=== PATIENT | female | born 1975 | race Caucasian/White ===

== ENCOUNTER → 2019-03-29 14:49 | Outpatient (CLI) | payer OTHER, SELFPAY | PROVIDERS: PCP Physician Assistant Medical | DX: C85.10 Unspecified B-cell lymphoma, unspecified site (principal); Z78.0 Asymptomatic menopausal state | CPT/HCPCS: 77080 ==

== ENCOUNTER → 2019-07-19 13:48 | Outpatient (CLI) | payer OTHER, SELFPAY ==
[2019-07-19 14:01] LABS: Add Manual Diff / Slide Review NO; Basophils Absolute Auto 100 /uL (0-100); Basophils Percent Auto 0.9 % (0-2); Eosinophils Absolute Auto 100 /uL (0-450); Eosinophils Percent Auto 1.3 % (2-4); Hemoglobin 13.2 g/dL (12.0-16.0); Lymphocytes Absolute Auto 2400 /uL (1100-4500); Lymphocytes Percent Auto 38.1 % (25-40); Mean Corpuscular HGB Conc 33.9 % (30-36); Mean Corpuscular Hemoglobin 32.1 PG (26-34); Mean Corpuscular Volume 94.7 fL (80-100); Monocytes Absolute Auto 600 /uL (0-900); Monocytes Percent Auto 9.9 % (3-14); Neutrophils Absolute Auto 3200 /uL (1500-7000); Neutrophils Percent Auto 49.8 % (50-75); Platelet Count 352 X10^3/uL (150-400); Red Blood Cell Count 4.12 X10^6/uL (4.0-5.2); Red Cell Distribution Width 12.2 % (11.6-14.8); White Blood Cell Count 6.4 X10^3/uL (4.5-11.0)
[2019-07-19 14:14] LABS: Alanine Aminotransferase 25 IU/L (<35); Albumin 4.7 g/dL (3.5-5.0); Albumin Globulin Ratio 1.6 (1.0-2.8); Alkaline Phosphatase 104 U/L (38-126); Aspartate Aminotransferase 26 IU/L (14-36); Bilirubin Total 0.4 mg/dL (0.2-1.3); Blood Urea Nitrogen 12 mg/dL (7-17); Calcium 9.7 mg/dL (8.4-10.2); Carbon Dioxide 30 mmol/L (22-32); Chloride 97 mmol/L (98-107); Estimated Glomerular Filt Rate > 60.0 mL/min (>60); Globulin 2.9 g/dL (1.7-4.1); Glucose 99 mg/dL (70-100); HEMOLYSIS < 15 (0-50); Lactate Dehydrogenase 349 U/L (313-618); Potassium 4.5 mmol/L (3.4-5.1); Sodium 137 mmol/L (137-145); Total Protein 7.6 g/dL (6.3-8.2)
== END ==
PROVIDERS: PCP Physician Assistant Medical
DX: C85.10 Unspecified B-cell lymphoma, unspecified site (principal)
CPT/HCPCS: 36415; 80053; 83615; 85025

== ENCOUNTER → 2019-07-26 15:43 | Outpatient (CLI) | payer OTHER, SELFPAY ==
--- NOTE | 2019-07-26 15:44 | DI.CT.S_ITS ---
PROCEDURE: CT LUMBAR SPINE W CON INDICATIONS: lower back pain TECHNIQUE: After the administration of intravenous Isovue contrast, 3 mm thick sections acquired through the levels of interest. Sagittal and coronal reformats were then constructed. For radiation dose reduction, the following was used: automated exposure control. COMPARISON: [place], [place], PET/CT SKULL BASE TO MID THIGH, 06/09/2014, 8:57. [facility], [place], CHEST/ABD/PEL WITH CONTRAST, 05/21/2015, 9:03. [facility], CT, CHEST/ABD/PEL WITH CONTRAST, 04/15/2016, 9:30. FINDINGS: Image quality: Excellent. Bones: Mild levoconvex scoliotic curvature is noted. No focal AP alignment abnormality is seen. No displaced fractures are seen. No suspicious lytic or blastic lesions are seen. The disc heights are well-preserved. Mild degenerative changes are seen. No significant central canal narrowing is seen. Soft tissues: No enhancing masses are seen. No retroperitoneal or paraspinous abnormal enhancement can be seen. No abscess formation. The kidneys enhance normally and symmetrically. No retroperitoneal lesions are seen. The aorta demonstrates normal caliber. No dilated loops of bowel are seen. IMPRESSION: No significant abnormality is detected. No abnormal enhancement is seen. Dictated by: Sadiq Madsen M.D. on 07/26/2019 at 16:52 Approved by: Sadiq Madsen M.D. on 07/26/2019 at 16:54
== END ==
PROVIDERS: PCP Physician Assistant Medical; Referring Provider Internal Medicine Hematology & Oncology; Visit Provider Internal Medicine Hematology & Oncology
DX: C85.10 Unspecified B-cell lymphoma, unspecified site (principal); M54.5 Low back pain
CPT/HCPCS: 72132; Q9967

== ENCOUNTER 2020-08-25 12:34 | Emergency (ER) | payer OTHER, SELFPAY ==
[2020-08-25 12:41] VITALS: BP 138/66; PULSE 104; RESP 18; TEMP 36.1; O2SAT 99
--- NOTE | 2020-08-25 12:46 | PC.NURSE ---
Left great toe infection w/ redness, swelling and increased discomfort. Pt has been soaking in epsom salts. Takes gabapentin and meloxicam daily and is not helping.
[2020-08-25] MEDS: TRAMADOL 50 MG TABLET PO (13:12)
[2020-08-25] MEDS: TRIMETH/SULFA 160/800 (DS) TABLET 1 TAB PO (13:13)
[2020-08-25 13:14] VITALS: PULSE 85; RESP 16; O2SAT 99
--- NOTE | 2020-08-25 13:17 | ED_ITS ---
HPI - Extremity Problem <KVNG Samano - Last Filed: 08/25/20 15:53> General Chief complaint: Extremity Problem,Nontraumatic Stated complaint: left toe infected Time Seen by Provider: 08/25/20 12:46 Source: patient Mode of arrival: Ambulatory Limitations: no limitations History of Present Illness HPI Narrative: The patient is a 45-year-old female nonsmoker with history of B- cell lymphoma in remission who presents with a chief complaint of an infection to her left toe. She notes that pulled the piece of skin off along the nail last week, substernal is been increasingly red and swollen. It was on the outside of the left great toe. She denies any fevers, vomiting, muscle aches or chills. She has been doing warm soaks several times per day. Related Data Home Medications Medication Instructions Recorded Confirmed PreserVision AREDS-2 180 mg PO BID #0 03/04/16 08/09/19 calcium carbonate 600 mg PO QDAY #0 03/04/16 08/09/19 magnesium oxide 400 mg PO QDAY #0 03/04/16 08/09/19 multivitamin [Multiple Vitamins] 1 tab PO QDAY #0 tab 04/18/16 08/09/19 Excedrin Migraine 1 tab PO PRN PRN #0 08/28/17 08/09/19 acetaminophen [Tylenol Extra 1,000 mg PO Q8HR 02/14/20 02/14/20 Strength] ibuprofen 800 mg PO TID 02/14/20 02/14/20 Previous Rx's Medication Instructions Recorded lorazepam [Ativan] 1 mg PO QPM PRN #30 tab 01/12/19 gabapentin 600 mg PO TID #90 tab 02/14/20 gabapentin 600 mg PO TID #90 tab 02/14/20 lorazepam 0.5 mg SUBLINGUAL BEDTIME PRN #30 08/23/20 tab sulfamethoxazole-trimethoprim 1 tab PO BID #14 tab 08/25/20 [Bactrim DS] tramadol 50 mg PO Q6H PRN #10 tab 08/25/20 Allergies Allergy/AdvReac Type Severity Reaction Status Date / Time Penicillins Allergy Mild RASH, Verified 08/25/20 12:45 NAUSEA Review of Systems <KVNG Samano - Last Filed: 08/25/20 15:53> Review of Systems Narrative: GENERAL: Denies chills, fatigue, malaise, fever, sweats. HEENT: Denies sinus pain, ear pain, sore throat, difficulty swallowing, dizziness. RESPIRATORY: Denies dyspnea, cough, wheezing, hemoptysis, sputum. CARDIOVASCULAR: Denies chest pain, palpitations, orthopnea, edema, GASTROINTESTINAL: Denies nausea, vomiting, abdominal pain, diarrhea, constipation, melena. : Denies dysuria, frequency, incontinence, hematuria, urinary retention. MUSCULOSKELETAL: denies weakness, joint pain, or bony pain SKIN: See HPI NEUROLOGIC: Denies weakness, headache, numbness, change in speech, confusion, seizures, incoordination. PSYCHIATRIC: No concerning psychosocial issues. 12 point review of systems is negative except for those stated above Patient History <[facility] - Last Filed: 08/25/20 15:53> Social History Smoking Status: Never smoker Smoking Status: Never smoker alcohol intake frequency: 0-2 drinks per day Substance Use Type: does not use Exam <[facility] - Last Filed: 08/25/20 15:53> Narrative Exam Narrative: GENERAL: This is a well-nourished, well-developed patient, in no acute distress HEAD: Atraumatic. Normocephalic. No temporal or scalp tenderness. EYES: Pupils equal round and reactive. Extraocular motions intact. No scleral icterus. No injection or drainage. ENT: Nose without bleeding, purulent drainage or septal hematoma. Wearing mask Airway patent. NECK: Trachea midline. No JVD or lymphadenopathy. Supple, nontender, no meningeal signs. CARDIOVASCULAR: Regular rate and rhythm RESPIRATORY: No cough. No increased respiratory effort. No accessory muscle use. EXTREMITIES: erythema noted to lateral aspect of left great toe, paronychia noted, no active drainage. Erythema extending 1 cm distal to great toenail on left side. Positive pedal pulses. Wiggling all toes. BACK: Nontender without deformity or crepitance. No flank tenderness. NEURO: AOx3. SKIN: See extremity exam Initial Vital Signs Initial Vital Signs: Vital Signs Temperature 96.9 F L 08/25/20 12:41 Pulse Rate 104 H 08/25/20 12:41 Respiratory Rate 18 08/25/20 12:41 Blood Pressure 138/66 08/25/20 12:41 Pulse Oximetry 99 08/25/20 12:41 <Tiik Campo DO - Last Filed: 08/25/20 17:06> Initial Vital Signs Initial Vital Signs: Vital Signs Temperature 96.9 F L 08/25/20 12:41 Pulse Rate 104 H 08/25/20 12:41 Respiratory Rate 18 08/25/20 12:41 Blood Pressure 138/66 08/25/20 12:41 Pulse Oximetry 99 08/25/20 12:41 Scores <KVNG Samano - Last Filed: 08/25/20 15:53> GCS [place] coma scale eye opening: Spontaneous [place] coma scale verbal response: Orientated [place] coma scale motor response: Obey commands [place] coma scale total score: 15 Course <KNVG Samano - Last Filed: 08/25/20 15:53> Orders Ordered: Discontinued Medications Tramadol HCl (Tramadol 50 Mg Tablet) 50 mg PO NOW ONE Stop: 08/25/20 13:10 Last Admin: 08/25/20 13:12 Dose: 50 mg Documented by: JENN Trimethoprim/Sulfamethoxazole (Trimeth/Sulfa 160/800 (Ds) Tablet) 1 tab PO NOW ONE Stop: 08/25/20 13:10 Last Admin: 08/25/20 13:13 Dose: 1 tab Documented by: JENN Vital Signs Vital signs: Vital Signs - 8 hr 08/25/20 12:41 08/25/20 13:14 08/25/20 13:44 Temperature 96.9 F L Pulse Rate 104 H 85 96 H Respiratory Rate 18 16 Blood Pressure 138/66 120/77 Pulse Oximetry 99 99 98 <Tiki Campo DO - Last Filed: 08/25/20 17:06> Orders Ordered: Discontinued Medications Tramadol HCl (Tramadol 50 Mg Tablet) 50 mg PO NOW ONE Stop: 08/25/20 13:10 Last Admin: 08/25/20 13:12 Dose: 50 mg Documented by: JENN Trimethoprim/Sulfamethoxazole (Trimeth/Sulfa 160/800 (Ds) Tablet) 1 tab PO NOW ONE Stop: 08/25/20 13:10 Last Admin: 08/25/20 13:13 Dose: 1 tab Documented by: JENN Vital Signs Vital signs: Vital Signs - 8 hr 08/25/20 12:41 08/25/20 13:14 08/25/20 13:44 Temperature 96.9 F L Pulse Rate 104 H 85 96 H Respiratory Rate 18 16 Blood Pressure 138/66 120/77 Pulse Oximetry 99 99 98 [facility] - Extremity (Nontraumatic) <JIM SamanoP-BC - Last Filed: 08/25/20 15:53> [facility] Narrative Medical decision making narrative: The patient is a 45-year-old female who presents with a chief complaint of possible infection to her left great toe. She no signs of systemic infection. 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 Encouraged continued warm soaks multiple signs per day. Encouraged primary care provider follow-up. Discussed at length monitoring for signs and symptoms of systemic infection including fever vomiting etcetera encouraged follow-up with primary care provider. Small prescription of tramadol provided for pain control to help the patient sleep. She can unfortunately not do Toradol as she is already on meloxicam. Patient has no questions or concerns upon discharge states understanding return precautions as well as follow-up care. Patient was given 1st dose of antibiotics in the emergency department, which she tolerated well. Discharge Plan Departure Patient Disposition: Home Clinical Impression: Paronychia Cellulitis Qualifiers: Site of cellulitis: extremity Site of cellulitis of extremity: toe Laterality: left Qualified Code(s): L03.032 - Cellulitis of left toe Clinical Impression: (Ruled Out): Gout Instructions: DI for Cellulitis -- Adult, DI for Paronychia, DI for Wound Infection Activity Restrictions/Additional Instructions: Thank you for trusting us with your care today I sent 2 prescriptions to [facility]. One is an antibiotic, the other is for pain Please take the antibiotic with probiotic or yogurt. This can help prevent antibiotic related side effects. Please follow-up with primary care provider in the next few days. As discussed please monitor for extending redness, fever, signs of systemic infection Please come back to the emergency department for any acute concerns You have been prescribed narcotic medications. While on these medications you cannot drive or operate heavy machinery. Additionally you cannot sign legal documents or perform any duties such as this. Many people get constipated on na rcotic medications so it would be advisable to discuss stool softeners with the pharmacist when you picker your prescription. Please continue warm soaks for several times per day several days Prescriptions: New sulfamethoxazole-trimethoprim [Bactrim DS] 800-160 mg tablet 1 tab PO BID Qty: 14 RF: 0 tramadol 50 mg tablet 50 mg PO Q6H PRN (Reason: pain) Qty: 10 RF: 0 No Action magnesium oxide 400 MG tablet 400 mg PO QDAY Qty: 0 RF: 0 calcium carbonate 600 MG tablet 600 mg PO QDAY Qty: 0 RF: 0 PreserVision AREDS-2 1 EACH capsule 180 mg PO BID Qty: 0 RF: 0 multivitamin [Multiple Vitamins] 1 EACH tablet 1 tab PO QDAY Qty: 0 RF: 0 Excedrin Migraine 1 EACH tablet 1 tab PO PRN PRN (Reason: Headache) Qty: 0 RF: 0 lorazepam [Ativan] 1 MG tablet 1 mg PO QPM PRN (Reason: sleep) Qty: 30 RF: 0 gabapentin 600 mg Tablet 600 mg PO TID Qty: 90 RF: 6 gabapentin 600 mg Tablet 600 mg PO TID Qty: 90 RF: 0 acetaminophen [Tylenol Extra Strength] 500 mg Tablet 1,000 mg PO Q8HR RF: 0 ibuprofen 800 mg Tablet 800 mg PO TID RF: 0 lorazepam 1 mg Tablet 0.5 mg SUBLINGUAL BEDTIME PRN (Reason: Sleep) Qty: 30 RF: 3 Referrals: Rossana Koroma PA-C [Primary Care Provider] - <Tiki Campo DO - Last Filed: 08/25/20 17:06> [facility] ED Attending Mary Ellen Attestation: I was immediately available in the department for consultation. Documentation has been reviewed. I agree with assessment and plan.
[2020-08-25 13:44] VITALS: BP 120/77; PULSE 96; O2SAT 98
== END 2020-08-25 13:45 | disposition home or self-care (01) ==
PROVIDERS: Emergency Provider Nurse Practitioner Family; PCP Physician Assistant Medical
DX: L03.032 Cellulitis of left toe (principal)
CPT/HCPCS: 99281; 99283

== ENCOUNTER → 2020-08-29 17:50 | Outpatient (CLI) | payer OTHER, SELFPAY ==
--- NOTE | 2020-08-29 | DI.MRI.S_ITS ---
PROCEDURE: MR ELBOW RT WO CON INDICATIONS: Pain in right elbow TECHNIQUE: Noncontrast coronal proton density fast spin echo and T2 fast spin echo with fat saturation, axial and sagittal T1 spin echo and T2 fast spin echo with fat saturation through the elbow. COMPARISON: [facility], [place], XR ELBOW 1 OR 2 VIEWS RIGHT, 08/20/2020, 15:25. FINDINGS: Image quality: Excellent. Lateral structures: There is moderate tendinosis and low grade intrasubstance tearing of the common extensor tendon at the origin with mild overlying soft tissue edema. The radial collateral ligament is intact. Medial structures: The ulnar collateral ligament appears intact. The overlying common flexor tendon appears normal. The ulnar nerve appears normal in size and signal within the cubital tunnel. Anterior structures: The biceps and brachialis tendons both appear intact as they insert onto the proximal radius and ulna, respectively. No bicipitoradial bursal fluid. The median and radial neurovascular bundles appear normal; no focal muscle atrophy to suggest nerve impingement. Posterior structures: Hypointense structure is seen posterior to the olecranon measuring 6 mm that most likely represents a small calcification related to calcific tendinopathy, as seen on the radiographs from 08/20/2020. Findings are superimposed on mild tendinosis without a discrete tendon tear identified. No olecranon bursal fluid. Bone and cartilage: No bone marrow contusions or fractures. No osteochondral injuries. IMPRESSION: 1. Low-grade partial intrasubstance tearing of the common extensor tendon at its origin superimposed on moderate tendinosis. 2. Calcific tendinopathy of the distal triceps tendon. Dictated by: Julian Richards M.D. on 08/30/2020 at 9:38 Approved by: Julian Richards M.D. on 08/30/2020 at 9:48
== END ==
PROVIDERS: PCP Physician Assistant Medical; Referring Provider Orthopaedic Surgery; Visit Provider Orthopaedic Surgery
DX: M25.521 Pain in right elbow (principal); S56.511A Strain of other extensor muscle, fascia and tendon at forearm level, right arm, initial encounter
CPT/HCPCS: 73221

== ENCOUNTER 2020-10-20 18:56 | Emergency (ER) | payer OTHER, SELFPAY ==
[2020-10-20] VITALS (11 sets, daily range): BP systolic 92–106; BP diastolic 57–72; PULSE 95–109; RESP 20; TEMP 36.3; O2SAT 96–100; BMI 29.2
[2020-10-20] MEDS: ONDANSETRON 4 MG/2 ML INJ IV ×2 (19:49→22:40)
[2020-10-20] MEDS: SODIUM CHLORIDE 0.9% 1,000 ML 1000 ML IV (19:50)
--- NOTE | 2020-10-20 19:54 | DI.CT.S_ITS ---
PROCEDURE: CT HEAD/BRAIN WO CON INDICATIONS: AMS TECHNIQUE: Noncontrast 4.5 mm thick angled axial sections acquired from the foramen magnum to the vertex, with coronal and sagittal reformats. For radiation dose reduction, the following was used: automated exposure control, adjustment of mA and/or kV according to patient size. COMPARISON: None. FINDINGS: Image quality: Excellent. CSF spaces: Basal cisterns are patent. No extra-axial fluid collections. Ventricles are normal in size and shape. Brain: No midline shift. No intracranial masses or hemorrhage. [place]-white matter interface is normal. Skull and face: Calvarium and visualized facial bones are intact, without suspicious lesions. Sinuses: Visualized sinuses and mastoids are clear. IMPRESSION: Source of altered mental status is not seen. Dictated by: Eladio Rome M.D. on 10/20/2020 at 20:33 Approved by: Eladio Rome M.D. on 10/20/2020 at 20:33
[2020-10-20 20:00] LABS: Acetaminophen < 10 ug/mL (10-30); Alanine Aminotransferase 22 IU/L (<35); Albumin 4.6 g/dL (3.5-5.0); Albumin Globulin Ratio 1.5 (1.0-2.8); Alkaline Phosphatase 112 U/L (38-126); Aspartate Aminotransferase 40 IU/L (14-36); BUN Creatinine Ratio 22.8 (6-22); Bilirubin Total 0.4 mg/dL (0.2-1.3); Blood Urea Nitrogen 13 mg/dL (7-17); Calcium 9.4 mg/dL (8.4-10.2); Carbon Dioxide 27 mmol/L (22-32); Chloride 102 mmol/L (98-107); Estimated Glomerular Filt Rate > 60.0 mL/min (>60); Ethanol (ETOH) 117 mg/dL; Globulin 3.1 g/dL (1.7-4.1); Glucose 96 mg/dL (70-100); Potassium 3.9 mmol/L (3.4-5.1); Salicylate < 1.0 mg/dL (<20); Sodium 138 mmol/L (137-145); Total Protein 7.7 g/dL (6.3-8.2)
[2020-10-20 20:03] LABS: HEMOLYSIS 103 (0-50)
[2020-10-20 20:15] LABS: Add Manual Diff / Slide Review NO; Basophils Absolute Auto 100 /uL (0-100); Basophils Percent Auto 0.9 % (0-2); Eosinophils Absolute Auto 100 /uL (0-450); Eosinophils Percent Auto 0.8 % (2-4); Hematocrit 36.4 % (36-46); Hemoglobin 12.6 g/dL (12.0-16.0); Lymphocytes Absolute Auto 2800 /uL (1100-4500); Lymphocytes Percent Auto 37.2 % (25-40); Mean Corpuscular HGB Conc 34.5 % (30-36); Mean Corpuscular Hemoglobin 32.4 PG (26-34); Monocytes Absolute Auto 600 /uL (0-900); Monocytes Percent Auto 8.1 % (3-14); Neutrophils Absolute Auto 4000 /uL (1500-7000); Platelet Count 369 X10^3/uL (150-400); Red Blood Cell Count 3.88 X10^6/uL (4.0-5.2); Red Cell Distribution Width 12.2 % (11.6-14.8); White Blood Cell Count 7.6 X10^3/uL (4.5-11.0)
[2020-10-20 20:21] LABS: Lipase 162 U/L (23-300)
[2020-10-20 20:48] LABS: Pregnancy Test Serum,Qual Negative (Negative)
[2020-10-20 21:36] LABS: UR Morphine/Opiate cutoff 300 Negative (Negative); Ur Creatinine Normal (Normal); Ur Specific Gravity Normal (Normal); Urine Amphetamines Negative (Negative); Urine Barbiturates Negative (Negative); Urine Benzodiazepines Negative (Negative); Urine Cocaine Negative (Negative); Urine MDMA Negative (Negative); Urine Methadone Negative (Negative); Urine Methamphetamines Negative (Negative); Urine Oxycodone Negative (Negative); Urine Phencyclidine Negative (Negative); Urine Tetrahydrocannabinol Negative (Negative); Urine Tricyclic Antidepressant Negative (Negative); Urine pH Normal (Normal)
[2020-10-20 21:37] LABS: Pregnancy Test Urine Negative (Negative)
[2020-10-20 21:46] LABS: Prolactin 30.8 ng/mL (3.0-18.6)
--- NOTE | 2020-10-20 22:08 | ED.AMS ---
HPI - Altered Mental Status General Chief Complaint: Toxicology Problem Stated Complaint: AMS Time Seen by Provider: 10/20/20 19:54 Source: patient, family and EMS Mode of arrival: EMS Limitations: no limitations History of Present Illness HPI narrative: Patient is a 45 year old female who was found unresponsive on her couch by her . EMS was promptly called he was unable to arouse her she has since become more arousable and very confused. She took her gabapentin this morning she has been on gabapentin for number of years the dose has not changed she had to [place] drinks at their house they were entertaining some gas and suddenly she was unarousable. She has no prior history of seizure there was no loss of urine it is unclear what happened it does not appear that there is trauma. She denies any drug use. She has no numbness tingling weakness fever or any other symptoms. MD complaint: confusion and decreased responsiveness Related Data Home Medications Medication Instructions Recorded Confirmed PreserVision AREDS-2 180 mg PO BID #0 03/04/16 09/17/20 calcium carbonate 600 mg PO QDAY #0 03/04/16 09/17/20 magnesium oxide 400 mg PO QDAY #0 03/04/16 09/17/20 multivitamin [Multiple Vitamins] 1 tab PO QDAY #0 tab 04/18/16 09/17/20 Excedrin Migraine 1 tab PO PRN PRN #0 08/28/17 09/17/20 acetaminophen [Tylenol Extra 1,000 mg PO Q8HR 02/14/20 09/17/20 Strength] ibuprofen 800 mg PO TID 02/14/20 09/17/20 meloxicam 15 mg PO DAILY 09/17/20 09/17/20 Previous Rx's Medication Instructions Recorded lorazepam [Ativan] 1 mg PO QPM PRN #30 tab 01/12/19 lorazepam 0.5 mg SUBLINGUAL BEDTIME PRN #30 08/23/20 tab sulfamethoxazole-trimethoprim 1 tab PO BID #14 tab 08/25/20 [Bactrim DS] tramadol 50 mg PO Q6H PRN #10 tab 08/25/20 gabapentin 600 mg PO TID #90 tab 08/30/20 ondansetron 4 mg PO Q8H PRN #10 tab 10/20/20 Allergies Allergy/AdvReac Type Severity Reaction Status Date / Time Penicillins Allergy Mild RASH, Verified 10/20/20 19:09 NAUSEA Review of Systems Review of Systems ROS Unobtainable: All systems reviewed & are unremarkable except as noted in HPI and below Constitutional Constitutional: Denies chills, Denies fever(s), Denies lethargy and Denies weakness Eyes Eyes: Denies blurry vision and Denies exophthalmos ENT Ears, Nose, Mouth, and Throat: Denies vertigo and Denies dizziness Cardiovascular Cardiovascular: Denies chest pain, Denies syncope, Denies irregular heart rhythm, Denies lightheadedness, Denies palpitations, Denies dyspnea, Denies dyspnea on exertion and Denies orthopnea Respiratory Respiratory: Denies cough, Denies dyspnea, Denies dyspnea on exertion and Denies wheezing Gastrointestinal Gastrointestinal: Denies abdominal pain, Denies change in bowel habits, Denies diarrhea, Denies nausea and Denies vomiting Musculoskeletal Musculoskeletal: Denies arthralgias, Reports back pain (Chronic) and Denies loss of height Integumentary/Breasts Skin/Breast: Denies pruritus, Denies erythema, Denies rash and Denies wounds Neurologic Neurologic: Reports as per HPI, Reports confusion, Denies vertigo, Denies dizziness, Denies syncope and Denies weakness Psychiatric Psychiatric: Reports confusion Endocrine Endocrine: Denies palpitations Allergic/Immunologic Allergic/Immunologic: Denies wheezing Patient History Social History Smoking Status: Never smoker Smoking Status: Never smoker alcohol intake frequency: 0-2 drinks per day Substance Use Type: does not use Exam Initial Vital Signs Initial Vital Signs: Vital Signs Pulse Rate 109 H 10/20/20 19:09 Respiratory Rate 20 10/20/20 19:09 Blood Pressure 106/72 10/20/20 19:09 Pulse Oximetry 100 10/20/20 19:09 GENERAL: Alert 45-year-old female appears mildly confused and weak and in no acute distress. HEENT: Head atraumatic,EOMI, pupils reactive, face symmetric, moist mucous membranes CARDIOVASCULAR: Regular rate and rhythm without murmurs, rubs or gallops. RESPIRATORY: Breath sounds equal bilaterally, no wheezes rales or rhonchi. ABDOMEN: Soft, nontender. Normoactive bowel sounds all 4 quadrants. No guarding or rebound. EXTREMITIES: Normal range of motion, no clubbing or edema. Neurovascularly intact NEUROLOGICAL: Alert and oriented x4.Normal gait and speech. Cranial nerves II through XII grossly intact. SKIN: Warm, dry, no laceration, no petechiae, no rashes or lesions. Scores NIH Stroke Scale Level of Conciousness: Alert, keenly responsive Ask month/age: Answers both questions correctly. Open/close eyes, close hand: Performs both tasks correctly Best gaze horizontal: Normal Visual coe: No visual loss Facial palsy: Normal symetrical movement Left arm drift: No drift for full 10 sec Right arm drift: No drift for full 10 sec Left leg drift: No drift for full 5 sec Right leg drift: No drift for full 5 sec Limb ataxia: Absent Sensory on face/arms/legs: Normal, no sensory loss Best language: No aphasia, normal Dysarthria: Normal Extinction or inattention: No abnormality Total NIH Stroke scale score: 0 Course Orders Ordered: ED Orders 10/20/20 21:03 Test Urine Stat Urine Drug Screen, Rapid Stat Discontinued Medications Sodium Chloride (Normal Saline 0.9%) 1,000 mls @ 1,000 mls/hr IV BOLUS ONE Stop: 10/20/20 20:38 Last Infusion: 10/20/20 21:17 Dose: 0 mls/hr Documented by: Admin: 10/20/20 19:50 Dose: 1,000 mls/hr Documented by: ELIZABETH Ketorolac Tromethamine (Ketorolac 30 Mg/Ml Vial) 15 mg IV NOW ONE Stop: 10/20/20 22:30 Last Admin: 10/20/20 22:40 Dose: 15 mg Documented by: ELIZABETH Ondansetron HCl (Ondansetron 4 Mg/2 Ml Inj) 4 mg IV NOW ONE Stop: 10/20/20 19:42 Last Admin: 10/20/20 19:49 Dose: 4 mg Documented by: ELIZABETH Ondansetron HCl (Ondansetron 4 Mg/2 Ml Inj) 4 mg IV NOW ONE Stop: 10/20/20 22:30 Last Admin: 10/20/20 22:40 Dose: 4 mg Documented by: ELIZABETH Vital Signs Vital signs: Vital Signs - 8 hr 10/20/20 21:30 10/20/20 22:30 10/20/20 23:00 Pulse Rate 95 H 98 H 96 H Blood Pressure 98/57 L 92/57 L Pulse Oximetry 100 99 96 10/20/20 23:07 Pulse Rate 95 H Blood Pressure 99/64 Pulse Oximetry 100 MDM - Altered Mental Status Lab Data Attestation: I reviewed the patient's lab results. Result diagrams: 10/20/20 19:15 10/20/20 19:15 Labs: Lab Results 10/20/20 10/20/20 10/20/20 Range/Units 19:15 19:15 19:15 WBC 7.6 (4.5-11.0) X10^3/uL RBC 3.88 L (4.0-5.2) X10^6/uL Hgb 12.6 (12.0-16.0) g/dL Hct 36.4 (36-46) % MCV 94.0 (80-100) fL MCH 32.4 (26-34) PG MCHC 34.5 (30-36) % RDW 12.2 (11.6-14.8) % Plt Count 369 (150-400) X10^3/uL Neut % (Auto) 53.0 (50-75) % Lymph % (Auto) 37.2 (25-40) % [place] % (Auto) 8.1 (3-14) % Eos % (Auto) 0.8 L (2-4) % Baso % (Auto) 0.9 (0-2) % Neut # (Auto) 4000 (1566-4032) /uL Lymph # (Auto) 2800 (8728-7690) /uL [place] # (Auto) 600 (0-900) /uL Eos # (Auto) 100 (0-450) /uL Baso # (Auto) 100 (0-100) /uL Sodium 138 (137-145) mmol/L Potassium 3.9 (3.4-5.1) mmol/L Chloride 102 (98-107) mmol/L Carbon Dioxide 27 (22-32) mmol/L BUN 13 (7-17) mg/dL Creatinine 0.57 (0.52-1.04) mg/dL Estimated GFR > 60.0 (>60) mL/min BUN/Creatinine Ratio 22.8 H (6-22) Glucose 96 (70-100) mg/dL Calcium 9.4 (8.4-10.2) mg/dL Total Bilirubin 0.4 (0.2-1.3) mg/dL AST 40 H (14-36) IU/L ALT 22 (<35) IU/L Alkaline Phosphatase 112 (38-126) U/L Total Protein 7.7 (6.3-8.2) g/dL Albumin 4.6 (3.5-5.0) g/dL Globulin 3.1 (1.7-4.1) g/dL Albumin/Globulin Ratio 1.5 (1.0-2.8) Lipase 162 (23-300) U/L Prolactin (3.0-18.6) ng/mL Serum , Qual (Negative) Urine Test (Negative) Salicylates < 1.0 (<20) mg/dL U Opiates 300ng/mL cut (Negative) Ur Oxycodone Screen (Negative) Urine Methadone Screen (Negative) Acetaminophen < 10 L (10-30) ug/mL Ur Barbiturates Screen (Negative) U Tricyclic Antidepress (Negative) Ur Phencyclidine Scrn (Negative) Ur Amphetamines Screen (Negative) U Methamphetamines Scrn (Negative) Ur MDMA Scrn (Ecstasy) (Negative) U Benzodiazepines Scrn (Negative) Urine Cocaine Screen (Negative) U Marijuana (THC) Screen (Negative) Ethyl Alcohol 117 H ( - 10) mg/dL 10/20/20 10/20/20 10/20/20 Range/Units 19:15 19:15 21:03 WBC (4.5-11.0) X10^3/uL RBC (4.0-5.2) X10^6/uL Hgb (12.0-16.0) g/dL Hct (36-46) % MCV (80-100) fL MCH (26-34) PG MCHC (30-36) % RDW (11.6-14.8) % Plt Count (150-400) X10^3/uL Neut % (Auto) (50-75) % Lymph % (Auto) (25-40) % [place] % (Auto) (3-14) % Eos % (Auto) (2-4) % Baso % (Auto) (0-2) % Neut # (Auto) (1939-0668) /uL Lymph # (Auto) (5884-6920) /uL [place] # (Auto) (0-900) /uL Eos # (Auto) (0-450) /uL Baso # (Auto) (0-100) /uL Sodium (137-145) mmol/L Potassium (3.4-5.1) mmol/L Chloride (98-107) mmol/L Carbon Dioxide (22-32) mmol/L BUN (7-17) mg/dL Creatinine (0.52-1.04) mg/dL Estimated GFR (>60) mL/min BUN/Creatinine Ratio (6-22) Glucose (70-100) mg/dL Calcium (8.4-10.2) mg/dL Total Bilirubin (0.2-1.3) mg/dL AST (14-36) IU/L ALT (<35) IU/L Alkaline Phosphatase (38-126) U/L Total Protein (6.3-8.2) g/dL Albumin (3.5-5.0) g/dL Globulin (1.7-4.1) g/dL Albumin/Globulin Ratio (1.0-2.8) Lipase (23-300) U/L Prolactin 30.8 H (3.0-18.6) ng/mL Serum , Qual Negative (Negative) Urine Test (Negative) Salicylates (<20) mg/dL U Opiates 300ng/mL cut Negative (Negative) Ur Oxycodone Screen Negative (Negative) Urine Methadone Screen Negative (Negative) Acetaminophen (10-30) ug/mL Ur Barbiturates Screen Negative (Negative) U Tricyclic Antidepress Negative (Negative) Ur Phencyclidine Scrn Negative (Negative) Ur Amphetamines Screen Negative (Negative) U Methamphetamines Scrn Negative (Negative) Ur MDMA Scrn (Ecstasy) Negative (Negative) U Benzodiazepines Scrn Negative (Negative) Urine Cocaine Screen Negative (Negative) U Marijuana (THC) Screen Negative (Negative) Ethyl Alcohol ( - 10) mg/dL 10/20/20 Range/Units 21:03 WBC (4.5-11.0) X10^3/uL RBC (4.0-5.2) X10^6/uL Hgb (12.0-16.0) g/dL Hct (36-46) % MCV (80-100) fL MCH (26-34) PG MCHC (30-36) % RDW (11.6-14.8) % Plt Count (150-400) X10^3/uL Neut % (Auto) (50-75) % Lymph % (Auto) (25-40) % [place] % (Auto) (3-14) % Eos % (Auto) (2-4) % Baso % (Auto) (0-2) % Neut # (Auto) (5264-2703) /uL Lymph # (Auto) (4556-8489) /uL [place] # (Auto) (0-900) /uL Eos # (Auto) (0-450) /uL Baso # (Auto) (0-100) /uL Sodium (137-145) mmol/L Potassium (3.4-5.1) mmol/L Chloride (98-107) mmol/L Carbon Dioxide (22-32) mmol/L BUN (7-17) mg/dL Creatinine (0.52-1.04) mg/dL Estimated GFR (>60) mL/min BUN/Creatinine Ratio (6-22) Glucose (70-100) mg/dL Calcium (8.4-10.2) mg/dL Total Bilirubin (0.2-1.3) mg/dL AST (14-36) IU/L ALT (<35) IU/L Alkaline Phosphatase (38-126) U/L Total Protein (6.3-8.2) g/dL Albumin (3.5-5.0) g/dL Globulin (1.7-4.1) g/dL Albumin/Globulin Ratio (1.0-2.8) Lipase (23-300) U/L Prolactin (3.0-18.6) ng/mL Serum , Qual (Negative) Urine Test Negative (Negative) Salicylates (<20) mg/dL U Opiates 300ng/mL cut (Negative) Ur Oxycodone Screen (Negative) Urine Methadone Screen (Negative) Acetaminophen (10-30) ug/mL Ur Barbiturates Screen (Negative) U Tricyclic Antidepress (Negative) Ur Phencyclidine Scrn (Negative) Ur Amphetamines Screen (Negative) U Methamphetamines Scrn (Negative) Ur MDMA Scrn (Ecstasy) (Negative) U Benzodiazepines Scrn (Negative) Urine Cocaine Screen (Negative) U Marijuana (THC) Screen (Negative) Ethyl Alcohol ( - 10) mg/dL Urine Dip Bedside Urine Glucose Negative Bedside Urine Bilirubin - Negative Bedside Urine Ketone - Negative Urine Specific [place] 1.015 Bedside Urine Occult Blood +/- Bedside Urine pH 7.5 Bedside Urine Protein - Negative Bedside Urine Urobilinogen - Negative Bedside Urine Nitrite - Negative Bedside Urine Leukocytes +/- [address] scan - head: Radiologist's Impression: PROCEDURE: CT HEAD/BRAIN WO CON INDICATIONS: AMS TECHNIQUE: Noncontrast 4.5 mm thick angled axial sections acquired from the foramen magnum to the vertex, with coronal and sagittal reformats. For radiation dose reduction, the following was used: automated exposure control, adjustment of mA and/or kV according to patient size. COMPARISON: None. FINDINGS: Image quality: Excellent. CSF spaces: Basal cisterns are patent. No extra-axial fluid collections. Ventricles are normal in size and shape. Brain: No midline shift. No intracranial masses or hemorrhage. [place]-white matter interface is normal. Skull and face: Calvarium and visualized facial bones are intact, without suspicious lesions. Sinuses: Visualized sinuses and mastoids are clear. IMPRESSION: Source of altered mental status is not seen. Dictated by: Eladio Rome M.D. on 10/20/2020 at 20:33 ECG Data Attestation: I personally reviewed and interpreted this ECG as follows: Prior ECG tracings: available for review Interpretation: Normal sinus rhythm rate 1066 some artifact is noted QRS 72 QTC 475 MDM Narrative Medical decision making narrative: Patient is becoming more awake and alert during her emergency department stay. She has a mild elevation of prolactin at 30. It is possible that she had a seizure and is postictal. She is not a chronic drinker she certainly drink alcohol today this is unlikely to be alcohol withdrawal seizures no evidence of stroke. Patient does not drive she does not have a license. At this time I recommend outpatient follow-up with primary care provider and probable Neurology consultation and referral. Discharge Plan Departure Patient Disposition: Home Clinical Impression: Seizure Instructions: Seizure Disorder -- Adult Activity Restrictions/Additional Instructions: DO NOT DRIVE *You have been diagnosed with first-time seizure *What to do: At this time I believe that her symptoms are caused by a seizure however it is unclear what provoked this seizure. Do not drive. He will need to see Neurology for follow-up and likely need more testing. *Continue to take medications as directed--> [facility] Zofran 4 mg every 8 hours if needed for nausea or vomiting Ibuprofen 600 mg every 6-8 hours if needed for headache *Follow up with your primary care provider in 2-3 days *Return to ER if you should have increased headache of recurrent seizure, weakness numbness or tingling or any new, worsening or concerning symptoms Prescriptions: New ondansetron 4 mg tablet,disintegrating 4 mg PO Q8H PRN (Reason: nausea and vomiting) Qty: 10 RF: 0 No Action magnesium oxide 400 MG tablet 400 mg PO QDAY Qty: 0 RF: 0 calcium carbonate 600 MG tablet 600 mg PO QDAY Qty: 0 RF: 0 PreserVision AREDS-2 1 EACH capsule 180 mg PO BID Qty: 0 RF: 0 multivitamin [Multiple Vitamins] 1 EACH tablet 1 tab PO QDAY Qty: 0 RF: 0 Excedrin Migraine 1 EACH tablet 1 tab PO PRN PRN (Reason: Headache) Qty: 0 RF: 0 sulfamethoxazole-trimethoprim [Bactrim DS] 800-160 mg tablet 1 tab PO BID Qty: 14 RF: 0 tramadol 50 mg tablet 50 mg PO Q6H PRN (Reason: pain) Qty: 10 RF: 0 lorazepam [Ativan] 1 MG tablet 1 mg PO QPM PRN (Reason: sleep) Qty: 30 RF: 0 acetaminophen [Tylenol Extra Strength] 500 mg Tablet 1,000 mg PO Q8HR RF: 0 ibuprofen 800 mg Tablet 800 mg PO TID RF: 0 lorazepam 1 mg Tablet 0.5 mg SUBLINGUAL BEDTIME PRN (Reason: Sleep) Qty: 30 RF: 3 gabapentin 600 mg Tablet 600 mg PO TID Qty: 90 RF: 6 meloxicam 15 mg Tablet 15 mg PO DAILY RF: 0 Referrals: Rossana Koroma PA-C [Primary Care Provider] -
[2020-10-20] MEDS: KETOROLAC 30 MG/ML VIAL 15 MG IV (22:40)
== END 2020-10-20 23:18 | disposition home or self-care (01) ==
PROVIDERS: Emergency Provider Emergency Medicine; PCP Physician Assistant Medical
DX: R56.9 Unspecified convulsions (principal); G89.29 Other chronic pain; R79.89 Other specified abnormal findings of blood chemistry
CPT/HCPCS: 36415; 70450; 80053; 80305; 80320; 80329; 81003; 81025; 83690; 84146; 84703; 85025; 93005; 96361; 96374; 96375; 96376; 99284; G0480; J1885; J2405

== ENCOUNTER 2021-07-07 19:34 | Emergency (ER) | payer OTHER, SELFPAY ==
[2021-07-07 19:49] VITALS: BP 140/86; PULSE 105; RESP 17; TEMP 36.8; O2SAT 100; BMI 30.6
--- NOTE | 2021-07-07 19:59 | DI.CT.S_ITS ---
PROCEDURE: CT HEAD/BRAIN WO CON INDICATIONS: hit head 4 days ago with increased pain and nausea TECHNIQUE: Noncontrast 4.5 mm thick angled axial sections acquired from the foramen magnum to the vertex, with coronal and sagittal reformats. For radiation dose reduction, the following was used: automated exposure control, adjustment of mA and/or kV according to patient size. COMPARISON: [facility], CT, CT HEAD/BRAIN WO CON, 10/20/2020, 19:57. FINDINGS: Image quality: Excellent. CSF spaces: Basal cisterns are patent. No extra-axial fluid collections. Ventricles are normal in size and shape. Brain: No midline shift. No intracranial masses or hemorrhage. [place]-white matter interface is normal. Skull and face: Calvarium and visualized facial bones are intact, without suspicious lesions. Sinuses: Visualized sinuses and mastoids are clear. IMPRESSION: No CT evidence of acute intracranial pathology. No acute skull fracture. Dictated by: Mir Brar M.D. on 07/07/2021 at 20:37 Approved by: Mir Brar M.D. on 07/07/2021 at 20:37
--- NOTE | 2021-07-07 20:23 | ED_ITS ---
HPI - Head Injury General Chief complaint: Head Injury Stated complaint: Hit Lt. side of head Time Seen by Provider: 07/07/21 20:21 Source: patient Mode of arrival: Wheelchair History of Present Illness HPI Narrative: 46-year-old female nonsmoker with history of B-cell lymphoma presents with her in the chief complaint of a slip and fall a few days ago with head injury and ongoing symptoms. She states that she was walking and slipped on some ice and fell, striking her left forehead on an electrical box. She denies any loss of consciousness or vomiting though she has been persistently nauseated. She does not take any blood thinners and denies other injuries. She has had ongoing headache and nausea and feels a bit foggy. states that she has seemed a bit pressured in more deliberate in her speech. She denies any numbness, tingling or weakness. She has no blurred vision. She denies any neck or back pain Related Data Home Medications Medication Instructions Recorded Confirmed calcium carbonate 600 mg calcium 600 mg PO QDAY #0 03/04/16 09/17/20 (1,500 mg) tablet magnesium oxide 400 mg (241.3 mg 400 mg PO QDAY #0 03/04/16 09/17/20 magnesium) tablet vit C 250 mg-vit E 90 mg-zinc 40 180 mg PO BID #0 03/04/16 09/17/20 mg-copper 1 [id number]-pjyjxi capsule (PreserVision AREDS-2) multivitamin (Multiple Vitamins) 1 tab PO QDAY #0 tab 04/18/16 09/17/20 lppwmyu-eqyyyuestmons-ukymwzbi 250 1 tab PO PRN PRN #0 08/28/17 09/17/20 mg-250 mg-65 mg tablet (Excedrin Migraine) acetaminophen 500 mg tablet 1,000 mg PO Q8HR 02/14/20 09/17/20 (Tylenol Extra Strength) ibuprofen 800 mg tablet 800 mg PO TID 02/14/20 09/17/20 meloxicam 15 mg tablet 15 mg PO DAILY 09/17/20 09/17/20 Previous Rx's Medication Instructions Recorded lorazepam 1 mg tablet (Ativan) 1 mg PO QPM PRN #30 tab 01/12/19 sulfamethoxazole 800 1 tab PO BID #14 tab 08/25/20 mg-trimethoprim 160 mg tablet (Bactrim DS) tramadol 50 mg tablet 50 mg PO Q6H PRN #10 tab 08/25/20 ondansetron 4 mg disintegrating 4 mg PO Q8H PRN #10 tab 11/01/20 tablet ondansetron 4 mg disintegrating 4 mg PO Q8H PRN #20 tab 11/01/20 tablet lorazepam 1 mg tablet 0.5 mg SUBLINGUAL BEDTIME PRN #30 01/01/21 tab gabapentin 600 mg tablet 600 mg PO TID #90 tab 06/06/21 hydrocodone 5 mg-acetaminophen 325 1 tab PO Q4-6H PRN #10 tab 07/07/21 mg tablet ondansetron 4 mg disintegrating 4 mg PO TID-QID PRN #10 tab 07/07/21 tablet Allergies Allergy/AdvReac Type Severity Reaction Status Date / Time Penicillins Allergy Mild RASH, Verified 10/20/20 19:09 NAUSEA morphine Allergy Rash Verified 07/07/21 19:49 Review of Systems Review of Systems Narrative: GENERAL: Denies chills, fatigue, malaise, fever, sweats. HEENT: Denies sinus pain, ear pain, sore throat, difficulty swallowing, dizziness. RESPIRATORY: Denies dyspnea, cough, wheezing, hemoptysis, sputum. CARDIOVASCULAR: Denies chest pain, palpitations, orthopnea, edema, GASTROINTESTINAL: See HP : Denies dysuria, frequency, incontinence, hematuria, urinary retention. MUSCULOSKELETAL: denies weakness, joint pain, or bony pain SKIN: Denies rash, skin lesions, or other NEUROLOGIC: See HPI PSYCHIATRIC: No concerning psychosocial issues. 12 point review of systems is negative except for those stated above Patient History Social History Smoking Status: Never smoker Smoking Status: Never smoker alcohol intake frequency: 0-2 drinks per day Substance Use Type: does not use Exam Narrative Exam Narrative: GENERAL: [46] year old patient appears stated age. Well-developed patient, in mild distress. Clearly feeling at her baseline, GCS 15 HEAD: Atraumatic. Contusion with mild swelling over left lateral forehead with ecchymosis that is yellowing, no evidence of depressed skull fracture EYES: Pupils equal round and reactive. No hyphema Extraocular motions intact. No scleral icterus. No injection or drainage. ENT: Nose without bleeding, purulent drainage. No nasal septal hematoma Throat without erythema, tonsillar hypertrophy or exudate. Airway patent. NECK: Trachea midline. Non tender CARDIOVASCULAR: Regular rate and rhythm without murmurs, gallops, or rubs. RESPIRATORY: Clear to auscultation. Breath sounds equal bilaterally. No wheezes, rales, or rhonchi. GASTROINTESTINAL: Abdomen soft, non-tender, nondistended. EXTREMITIES: No edema or joint tenderness. BACK: Nontender without deformity or crepitance. No flank tenderness. NEURO: AOx3. SKIN: No rash or erythema of visible areas NIH Stroke Scale 1a. LOC: Patient is alert and keenly responsive (0) 1b. LOC Questions: Patient answers both LOC questions accurately (0) 1c. LOC Commands: Patient performs both tasks correctly (0) 2. Best Gaze: Normal (0) 3. Visual: No visual loss (0) 4. Facial palsy: Normal symmetrical movements (0) 5. Motor arm: No drift (0) 6. Motor leg: No drift (0) 7. Limb ataxia: Absent (0) 8. Sensory: Normal (0) 9. Best language: No aphasia; normal (0) 10. Dysarthria: Normal (0) 11. Extinction and inattention: No abnormality (0) NIHSS: 0 Initial Vital Signs Initial Vital Signs: Vital Signs Temperature 98.3 F 07/07/21 19:49 Pulse Rate 105 H 07/07/21 19:49 Respiratory Rate 17 07/07/21 19:49 Blood Pressure 140/86 07/07/21 19:49 Pulse Oximetry 100 07/07/21 19:49 Course Orders Ordered: ED Orders 07/07/21 19:59 CT head/brain wo con Stat Discontinued Medications Hydrocodone Bitart/Acetaminophen (Hydrocodone/Acet 5/325 Prepack) 1 bottle MISC SEEINSTR ONE Stop: 07/07/21 21:20 Last Admin: 07/07/21 21:29 Dose: 1 bottle Documented by: JAKE Ondansetron HCl (Ondansetron 4 Mg Odt Prepack) 1 bottle MISC SEEINSTR ONE Stop: 07/07/21 21:20 Last Admin: 07/07/21 21:29 Dose: 1 bottle Documented by: JAKE Vital Signs Vital signs: Vital Signs - 8 hr 01/16/22 21:38 Pulse Rate 93 H Respiratory Rate 15 Blood Pressure 127/76 Pulse Oximetry 99 MDM - Head Injury Lab Data Labs: Point of Care Testing Test Results Negative Imaging Data CT scan - head: Radiologist's Impression: [address] [address] [address] Scan Report Signed Patient: Corrie Carranza MR#: [id number] : 1975 Acct:[id number] Age/Sex: 46 / F Date of Service: 07/07/21 Loc: ED Accession Number: [id number] ?? Procedure: CT head/brain wo con Ordering Provider: Jef Shah D.O. PROCEDURE:? CT HEAD/BRAIN WO CON ? INDICATIONS:? hit head 4 days ago with increased pain and nausea ? TECHNIQUE:? Noncontrast 4.5 mm thick angled axial sections acquired from the foramen magnum to the vertex, with coronal and sagittal reformats.? For radiation dose reduction, the following was used:? automated exposure control, adjustment of mA and/or kV according to patient size.? ? COMPARISON:? Located Within [facility], CT, CT HEAD/BRAIN WO CON, 10/20/2020, 19:57. ? FINDINGS:? Image quality:? Excellent.? ? CSF spaces:? Basal cisterns are patent.? No extra-axial fluid collections.? Ventricles are normal in size and shape.? ? Brain:? No midline shift.? No intracranial masses or hemorrhage.? Garland-white matter interface is normal.? ? Skull and face:? Calvarium and visualized facial bones are intact, without suspicious lesions.? ? Sinuses:? Visualized sinuses and mastoids are clear.? ? IMPRESSION:? No CT evidence of acute intracranial pathology.? No acute skull fracture. ? ? Dictated by: Mir Brar M.D. on 07/07/2021 at 20:37 ? ? Approved by: Mir Brar M.D. on 07/07/2021 at 20:37 ? Discharge Plan Departure Patient Disposition: Home Clinical Impression: Concussion Instructions: Concussion Activity Restrictions/Additional Instructions: *You have been diagnosed with [ moderate concussion. As we discussed, your CT scan was very reassuring and demonstrated no signs of bleeding in your brain or skull fracture. *What to do: *Please continue to take your regular medications as directed. [x ] New medication prescriptions sent to your pharmacy: [[facility] in [place] ] [ ] New medication written as a paper prescription [ ] No new medications given *Please follow up with your primary care provider in 2-3 days, call for an appointment. Let them know you were seen in the Emergency Department and that we ask that you be seen in follow up. We will electronically transmit a record of today's note if your PCP is in our system You have a slight concussion and will likely have a mild headache and some nausea for a few days. Avoiding highly stimulating activities and even TV or computers may be helpful in minimizing your symptoms. Avoid activities that will put you at risk for another head injury for at least a week. You can take tylenol or motrin for headache or the prescription provided for nausea/vomiting. Return for worsening or persistent symptoms *Return to Emergency Department if you should have any new, worsening or concerning symptoms, such as [fever greater than 101 F, shaking chills, worsening pain, persistent vomiting or other bothersome symptoms] You have been prescribed a short course of narcotic medications. These are potentially dangerous and addictive medications that should be used carefully. While on these medications you cannot drive or operate heavy machinery. Additionally, you cannot sign legal documents or perform any duties such as this. Many people get constipated on narcotic medications so it would be advisable to discuss stool softeners with the pharmacist when you nut picker your prescription. Please understand that we cannot provide further refills of narcotics or controlled substances through the ED and your pain management will need to be through your Primary Care Provider Prescriptions: New hydrocodone-acetaminophen 5-325 mg tablet 1 tab PO Q4-6H PRN (Reason: pain) Qty: 10 0RF ondansetron 4 mg tablet,disintegrating 4 mg PO TID-QID PRN (Reason: nausea and vomiting) Qty: 10 0RF No Action magnesium oxide 400 MG tablet 400 mg PO QDAY Qty: 0 0RF calcium carbonate 600 MG tablet 600 mg PO QDAY Qty: 0 0RF PreserVision AREDS-2 1 EACH capsule 180 mg PO BID Qty: 0 0RF multivitamin [Multiple Vitamins] 1 EACH tablet 1 tab PO QDAY Qty: 0 0RF Excedrin Migraine 1 EACH tablet 1 tab PO PRN PRN (Reason: Headache) Qty: 0 0RF sulfamethoxazole-trimethoprim [Bactrim DS] 800-160 mg tablet 1 tab PO BID Qty: 14 0RF tramadol 50 mg tablet 50 mg PO Q6H PRN (Reason: pain) Qty: 10 0RF lorazepam [Ativan] 1 MG tablet 1 mg PO QPM PRN (Reason: sleep) Qty: 30 0RF Rx Instructions: 1 tab by mouth as needed at night for insomnia. No further refills will be provided by oncology, further management per PCP acetaminophen [Tylenol Extra Strength] 500 mg Tablet 1,000 mg PO Q8HR 0RF ibuprofen 800 mg Tablet 800 mg PO TID 0RF meloxicam 15 mg Tablet 15 mg PO DAILY 0RF ondansetron 4 mg tablet,disintegrating 4 mg PO Q8H PRN (Reason: nausea and vomiting) Qty: 10 0RF ondansetron 4 mg Tablet,Disintegrating 4 mg PO Q8H PRN (Reason: Nausea And Vomiting) Qty: 20 0RF lorazepam 1 mg Tablet 0.5 mg SUBLINGUAL BEDTIME PRN (Reason: Sleep) Qty: 30 3RF gabapentin 600 mg Tablet 600 mg PO TID Qty: 90 6RF Referrals: Rossana Koroma PA-C [Primary Care Provider] -
[2021-07-07] MEDS: ONDANSETRON 4 MG ODT PREPACK 1 BOTTLE MISC (21:29)
[2021-07-07] MEDS: HYDROCODONE/ACET 5/325 PREPACK 1 BOTTLE MISC (21:29)
[2021-07-07 21:38] VITALS: BP 127/76; PULSE 93; RESP 15; O2SAT 99
== END 2021-07-07 21:42 | disposition home or self-care (01) ==
PROVIDERS: Emergency Provider Emergency Medicine; PCP Physician Assistant Medical
DX: S06.0X0A Concussion without loss of consciousness, initial encounter (principal); W00.0XXA Fall on same level due to ice and snow, initial encounter
CPT/HCPCS: 70450; 81025; 99283; 99284